=== PATIENT | male | born 1985 | race African-American/Black ===

== ENCOUNTER 2021-03-02 22:11 | Emergency (ER) | payer MEDICARE, MEDICAID ==
[~2021-03-02] VITALS: Ht 188 cm; Wt 95.4 kg
--- NOTE | 2021-03-02 23:28 | PHYS DOC ---
Past Medical History Past Medical History: No Pertinent History (NASIR KERN) Past Surgical History: No Surgical History (NASIR KERN) General Adult EDM: Chief Complaint: BACK PAIN OR INJURY HPI: HPI: Patient is a 35 year old male who presents with left-sided back pain that began 15 minutes prior to arrival. Patient states he was resting at home when he had sudden left-sided low back pain that shot up into his neck. It has persisted at 8/10 on the left side only. Patient denies history of back pain, recent strenuous activity or injury. He also denies saddle anesthesia, bowel or bladder incontinence, lower extremity paresthesias and IV drug use. Patient denies past medical history or use of daily medications. Patient has no other complaints at this time. (NASIR KERN) Review of Systems: Review of Systems: ROS negative except as mentioned in HPI. (NASIR KERN) Heart Score: C/O Chest Pain: No (NASIR KERN) Current Medications: Current Medications Medications (Trade) Dose Ordered Sig/Jovanna Start Time Stop Time Status Last Admin Dose Admin Ketorolac Tromethamine (Toradol Im) 60 mg 1X ONCE 03/02/21 23:15 03/02/21 23:16 UNV Orphenadrine Citrate (Norflex) 60 mg 1X ONCE 03/02/21 23:15 03/02/21 23:16 UNV (NASIR KERN) Physical Exam: PE: Constitutional: Well developed, well nourished, no acute distress, non-toxic appearance. Neck: Normal range of motion, no step-offs, no midline, no paraspinal tenderness, muscle spasm appreciated bilaterally. Cardiovascular: Heart rate regular rhythm, no murmur. Lungs & Thorax: Bilateral breath sounds clear to auscultation. Abdomen: Bowel sounds normal, soft, no tenderness, no masses, no pulsatile masses. Skin: Warm, dry, no erythema, no rash. Back: No step-offs, no midline tenderness, no paraspinal tenderness, no CVA tenderness. Extremities: No tenderness, no cyanosis, no clubbing, ROM intact, no edema. Neurologic: Alert and oriented x4, motor function grossly intact with symm etrical gait, sensory function grossly intact, no focal deficits noted. (NASIR KERN) Current Patient Data: Labs: Laboratory Tests Test 03/02/21 23:30 Urine Collection Type Unknown Urine Color Yellow Urine Clarity Clear Urine pH 5.5 (<5.0-8.0) Urine Specific [place] >=1.030 (1.000-1.030) Urine Protein Negative mg/dL (NEG-TRACE) Urine Glucose (UA) Negative mg/dL (NEG) Urine Ketones (Stick) Negative mg/dL (NEG) Urine Blood Negative (NEG) Urine Nitrite Negative (NEG) Urine Bilirubin Negative (NEG) Urine Urobilinogen Dipstick 0.2 mg/dL (0.2 mg/dL) Urine Leukocyte Esterase Negative (NEG) Urine RBC 1-2 /HPF (0-2) Urine WBC 1-4 /HPF (0-4) Urine Squamous Epithelial Cells Occ /LPF Urine Bacteria 0 /HPF (0-FEW) Vital Signs: Vital Signs Date Time Temp Pulse Resp B/P (MAP) Pulse Ox O2 Delivery O2 Flow Rate FiO2 03/02/21 22:14 98.2 61 16 119/72 (88) 96 Room Air 98.2 (NASIR KERN) Course & Med Decision Making: Course & Med Decision Making Pertinent Labs and Imaging studies reviewed. (See chart for details) Patient is an otherwise healthy 35-year-old male who reports sudden onset left- sided back pain. Denies red flag symptoms as noted above. Discussed risks and benefits of imaging modalities including plain films, CT scan and MRI. Imaging deferred at this time using shared decision making. On reevaluation, patient states that his pain is improved. His exact words were, "It's getting there." Patient will be discharged home with prescription for Norflex p.o. He is instructed to use [id number] ibuprofen up to 800 mg every 6 hours for pain and inflammation as well. Patient provided with contact information for both neurology and pain management for further evaluation should his symptoms not improve significantly or return. Patient understands and is agreeable to discharge plan. (NASIR KERN) Dragon Disclaimer: Dragon Disclaimer: This electronic medical record was generated, in whole or in part, using a voice recognition dictation system. (NASIR KERN) Departure Departure Impression: Primary Impression: Muscle spasm of back Disposition: 01 HOME / SELF CARE / HOMELESS Condition: STABLE Referrals: MELINDA HERNANDEZ PA-C (PCP) ELIU JOYNER MD, JAY S MD Patient Instructions: Back Exercises, [id number], Back Pain, Adult, [id number] Scripts Orphenadrine Citrate (ORPHENADRINE CITRATE) 100 Mg Tablet.er 1 TAB PO PRN Q12HRS PRN for MUSCLE PAIN, #20 TAB 1 Refill Prov: NASIR KERN 03/02/21 Attending Signature Attending Signature I have reviewed the PA/DIVERSITY SPECIALIST's note and plan of care. I was available for consultation as needed during the patient's visit in the emergency department. I agree with the clinical impression, plan, and disposition. (MIRA MCKEON DO) NASIR KERN Mar 02, 2021 23:27 MIRA MCKEON DO Mar 03, 2021 00:20
[2021-03-02] MEDS ORDERED: KETOROLAC 60 MG/2 ML VIAL. IM ONE (23:45)
[2021-03-02] MEDS ORDERED: ORPHENADRINE CITRATE 60 MG/2 ML VIAL. IM ONE (23:45)
[2021-03-02 23:50] LABS: BILIRUBIN,URINE NEGATIVE (NEG); CLARITY,URINE CLEAR; COLOR,URINE YELLOW; NITRITE,URINE NEGATIVE (NEG); PH,URINE 5.5 (<5.0-8.0); PROTEIN,URINE NEGATIVE (NEG-TRACE); UROBILINOGEN,URINE 0.2 mg/dL (0.2 mg/dL)
[2021-03-02] MEDS ORDERED: ORPH100T PO (23:57)
[2021-03-03 00:05] LABS: BACTERIA,URINE 0 /HPF (0-FEW)
[2021-03-03 00:10] VITALS: BP 108/73
== END 2021-03-03 00:12 | disposition home or self-care (01) ==
LOC: EDBD 22:11 → ER 22:11
DX: M62.830 Muscle spasm of back (principal); M54.59 Other low back pain
CPT/HCPCS: 81001; 96372; 99284; J1885; J2360